=== PATIENT | male | born 1950 | race Caucasian/White ===

== ENCOUNTER 2020-03-08 12:08 | Emergency (ER) | payer MEDICARE, OTHER ==
[2020-03-08] MEDS ORDERED: diazePAM 10MG/2ML SYRINGE (J3360 PER 5MG) ONE (12:25)
[2020-03-08] MEDS ORDERED: KETOROLAC 60MG 2ML VIAL As Ordered ONE (12:25)
[2020-03-08] MEDS ORDERED: KETOROLAC 60MG 2ML VIAL ONE (12:25)
[2020-03-08] MEDS ORDERED: diazePAM 10MG/2ML SYRINGE (J3360 PER 5MG) As Ordered ONE (12:26)
== END 2020-03-08 12:41 | disposition home or self-care (01) ==
LOC: M ED 12:08
DX: M54.30 Sciatica, unspecified side (principal)
CPT/HCPCS: 96372; 99284; J1885; J3360

== ENCOUNTER → 2020-04-08 | Outpatient (REF) | payer MEDICARE ==
[2020-04-08 14:47] LABS: BASO # 0.1 10^3/uL (0.0-0.2); EOS # 0.2 10^3/uL (0.0-0.5); EOS % 3.8 % (0.0-3.0); HEMOGLOBIN 13.5 g/dl (13.5-17.5); LYMPH # 1.7 10^3/uL (1.5-5.0); LYMPH % 34.5 % (24.0-44.0); MEAN CORPUSCULAR HEMOGLOBIN 30.3 pg (27.0-33.0); MEAN CORPUSCULAR HGB CONC 32.9 g/dl (32.0-36.5); MEAN CORPUSCULAR VOLUME 92.1 fl (80.0-96.0); MONO # 0.5 10^3/uL (0.0-0.8); MONO % 9.9 % (0.0-5.0); NEUTROPHILS # 2.5 10^3/uL (1.5-8.5); NEUTROPHILS % 50.4 % (36.0-66.0); PLATELET COUNT, AUTOMATED 292 10^3/uL (150-450); RED BLOOD COUNT 4.45 10^6/uL (4.30-6.10)
[2020-04-08 14:54] LABS: ALBUMIN 3.4 GM/DL (3.2-5.2); ALT/SGPT 26 U/L (12-78); BILIRUBIN,TOTAL 0.7 MG/DL (0.2-1.0); BLOOD UREA NITROGEN 13 MG/DL (7-18); CALCIUM LEVEL 9.2 MG/DL (8.8-10.2); CARBON DIOXIDE LEVEL 28 MEQ/L (21-32); CHLORIDE LEVEL 108 MEQ/L (98-107); CHOLESTEROL LEVEL 262 MG/DL (<200); CHOLESTEROL RISK RATIO 4.678 (<5); CREATININE FOR GFR 1.09 MG/DL (0.70-1.30); FREE T4 0.98 NG/DL (0.76-1.46); GLOMERULAR FILTRATION RATE > 60.0 (>49); GLUCOSE, FASTING 94 MG/DL (70-100); HDL CHOLESTEROL 56 MG/DL (>40); LDL CHOLESTEROL 180 MG/DL (<100); NON-HDL-C 206 MG/DL; POTASSIUM SERUM 4.9 MEQ/L (3.5-5.1); SODIUM LEVEL 141 MEQ/L (136-145); THYROID STIMULATING HORMONE 0.991 uIU/ML (0.358-3.740); TOTAL PROTEIN 7.2 GM/DL (6.4-8.2); TRIGLYCERIDES LEVEL 130 MG/DL (<150)
[2020-04-08 14:56] LABS: TOTAL 25(OH) VITAMIN D 95.7 NG/ML (30.0-100.0)
[2020-04-13 04:07] LABS: PSA TOTAL 2.5 ng/mL (0.0-4.0)
== END ==
LOC: M LABDRWAD 12:57
PROVIDERS: ATTEND Physician Assistant
DX: M54.5 Low back pain (principal); Z13.21 Encounter for screening for nutritional disorder; Z12.5 Encounter for screening for malignant neoplasm of prostate; M48.10 Ankylosing hyperostosis [Forestier], site unspecified; E07.9 Disorder of thyroid, unspecified; E78.00 Pure hypercholesterolemia, unspecified; R97.20 Elevated prostate specific antigen [PSA]

== ENCOUNTER → 2021-04-26 | Outpatient (REF) | payer MEDICARE ==
[2021-04-26 14:05] LABS: BASO # 0.1 10^3/uL (0.0-0.2); BASO % 1.2 % (0.0-1.0); EOS # 0.1 10^3/uL (0.0-0.5); EOS % 2.6 % (0.0-3.0); HEMATOCRIT 42.9 % (42.0-52.0); HEMOGLOBIN 13.7 g/dl (13.5-17.5); LYMPH # 1.7 10^3/uL (1.5-5.0); LYMPH % 33.7 % (24.0-44.0); MEAN CORPUSCULAR HEMOGLOBIN 29.5 pg (27.0-33.0); MEAN CORPUSCULAR HGB CONC 31.9 g/dl (32.0-36.5); MEAN CORPUSCULAR VOLUME 92.5 fl (80.0-96.0); MONO # 0.6 10^3/uL (0.0-0.8); NEUTROPHILS # 2.6 10^3/uL (1.5-8.5); NEUTROPHILS % 51.3 % (36.0-66.0); PLATELET COUNT, AUTOMATED 283 10^3/uL (150-450); RED BLOOD COUNT 4.64 10^6/uL (4.30-6.10); WHITE BLOOD COUNT 5.1 10^3/uL (4.0-10.0)
[2021-04-26 14:36] LABS: ALBUMIN 3.4 GM/DL (3.2-5.2); ALT/SGPT 24 U/L (12-78); BILIRUBIN,TOTAL 0.8 MG/DL (0.2-1.0); BLOOD UREA NITROGEN 17 MG/DL (7-18); CALCIUM LEVEL 9.2 MG/DL (8.8-10.2); CARBON DIOXIDE LEVEL 26 MEQ/L (21-32); CHLORIDE LEVEL 106 MEQ/L (98-107); CHOLESTEROL LEVEL 292 MG/DL (<200); CHOLESTEROL RISK RATIO 4.709 (<5); CREATININE FOR GFR 1.04 MG/DL (0.70-1.30); GLOMERULAR FILTRATION RATE > 60.0 (>49); GLUCOSE, FASTING 96 MG/DL (70-100); HDL CHOLESTEROL 62 MG/DL (>40); LDL CHOLESTEROL 211 MG/DL (<100); NON-HDL-C 230 MG/DL; POTASSIUM SERUM 4.7 MEQ/L (3.5-5.1); SODIUM LEVEL 139 MEQ/L (136-145); TOTAL 25(OH) VITAMIN D 56.5 NG/ML (30.0-100.0); TOTAL PROTEIN 7.2 GM/DL (6.4-8.2); TRIGLYCERIDES LEVEL 96 MG/DL (<150)
[2021-04-27 20:08] LABS: PSA TOTAL 2.7 ng/mL (0.0-4.0)
== END ==
LOC: M LABDRWAD 12:56
PROVIDERS: ATTEND Family Medicine
DX: Z00.00 Encounter for general adult medical examination without abnormal findings (principal); Z79.899 Other long term (current) drug therapy; R97.20 Elevated prostate specific antigen [PSA]

== ENCOUNTER → 2022-07-24 | Outpatient (CLI) | payer MEDICARE ==
[2022-07-24 12:49] LABS: HEMATOCRIT 41.8 % (42.0-52.0); HEMOGLOBIN 13.7 g/dl (13.5-17.5); MEAN CORPUSCULAR HEMOGLOBIN 30.2 pg (27.0-33.0); MEAN CORPUSCULAR HGB CONC 32.8 g/dl (32.0-36.5); MEAN CORPUSCULAR VOLUME 92.1 fl (80.0-96.0); PLATELET COUNT, AUTOMATED 277 10^3/uL (150-450); RED BLOOD COUNT 4.54 10^6/uL (4.30-6.10); WHITE BLOOD COUNT 5.3 10^3/uL (4.0-10.0)
[2022-07-24 13:17] LABS: PROSTATIC SPECIFIC AG MONITOR 2.62 NG/ML (< 4.00)
[2022-07-24 13:22] LABS: ALT/SGPT 19 U/L (7.0-40); AST/SGOT 21 U/L (<34); BLOOD UREA NITROGEN 14 MG/DL (9-23); CALCIUM LEVEL 9.7 MG/DL (8.3-10.6); CARBON DIOXIDE LEVEL 28 MMOL/L (20-31); CHLORIDE LEVEL 106 MMOL/L (98-107); CREATININE FOR GFR 0.95 MG/DL (0.70-1.30); GLOMERULAR FILTRATION RATE > 60.0 (>42); GLUCOSE, FASTING 109 MG/DL (74-106); POTASSIUM SERUM 4.6 MMOL/L (3.5-5.1); SODIUM LEVEL 141 MMOL/L (136-145); THYROID STIMULATING HORMONE 1.335 uIU/ML (0.55-4.78); THYROXINE (T4) 7.8 UG/DL (4.5-10.9)
[2022-07-24 13:23] LABS: ALBUMIN 3.4 G/DL (3.2-5.2); ALKALINE PHOSPHATASE 75 U/L (46-116); BILIRUBIN,TOTAL 0.7 MG/DL (0.3-1.2); CHOLESTEROL LEVEL 311 MG/DL (<200); CHOLESTEROL RISK RATIO 4.98 (<5); HDL CHOLESTEROL 62.4 MG/DL (>40); LDL CHOLESTEROL 229.8 MG/DL (<100); NON-HDL-C 249 MG/DL; TOTAL PROTEIN 7.3 G/DL (5.7-8.2); TRIGLYCERIDES LEVEL 94 MG/DL (<150)
[2022-07-24 13:24] LABS: TESTOSTERONE 426 NG/DL (241-827); TOTAL 25(OH) VITAMIN D 65.3 NG/ML (20.0-100.0)
[2022-07-24 17:34] LABS: HEMOGLOBIN A1c 5.3 % (4.0-6.0)
[2022-07-26 07:11] LABS: TOTAL T3 111.9 NG/DL (60.0-181.0)
== END ==
LOC: M EKG 11:50
PROVIDERS: ATTEND Family Medicine
DX: D64.9 Anemia, unspecified (principal); R53.83 Other fatigue; E03.9 Hypothyroidism, unspecified

== ENCOUNTER → 2022-07-31 | Outpatient (CLI) | payer MEDICARE ==
[2022-07-31 13:05] LABS: CHOLESTEROL RISK RATIO 4.8 (<5); HDL CHOLESTEROL 65.8 MG/DL (>40); LDL CHOLESTEROL 234.2 MG/DL (<100)
== END ==
LOC: M LAB 11:37
PROVIDERS: ATTEND Family Medicine
DX: E78.5 Hyperlipidemia, unspecified (principal)

== ENCOUNTER 2024-06-14 06:41 | Emergency (ER) | payer MEDICARE ==
[~2024-06-14] VITALS: Ht 172.7 cm; Wt 69.1 kg
[2024-06-14] MEDS: CYCLOBENZAPRINE 5MG TABLET PO ONE (07:31)
[2024-06-14] MEDS: KETOROLAC 30 MG/ML 1ML VIAL IM ONE (07:31)
[2024-06-14] MEDS ORDERED: PRED20TA PO (08:30)
[2024-06-14] MEDS ORDERED: CYCL5TAB PO (08:30)
[2024-06-14] MEDS ORDERED: IBUP-1022 PO (08:30)
[2024-06-14 08:36] VITALS: BP 162/90; TEMP 97.4; O2SAT 99
[2024-06-17] MEDS ORDERED: CYCL5TAB PO (11:04)
== END 2024-06-14 08:49 | disposition home or self-care (01) ==
LOC: M ED 06:41
DX: M54.42 Lumbago with sciatica, left side (principal); Z79.52 Long term (current) use of systemic steroids; Z79.1 Long term (current) use of non-steroidal anti-inflammatories (NSAID); Z79.899 Other long term (current) drug therapy
CPT/HCPCS: 80047; 96372; 99283; J1100; J1885

== ENCOUNTER 2024-06-17 08:31 | Inpatient (IN) | payer MEDICARE ==
[~2024-06-17] VITALS: Ht 175.3 cm; Wt 69.1 kg
[~2024-06-17 08:31] MED LIST: CYCL5TAB4 PO; IBUP-1022 PO; PRED20TA PO
[2024-06-17] MEDS ORDERED: CYCL5TAB4 PO (11:04)
[2024-06-17] MEDS ORDERED: IBUP1TAB6 PO (11:04)
[2024-06-17] MEDS ORDERED: PRED20TA PO (11:04)
[2024-06-17] MEDS ORDERED: HOME MED LIST COMPLETE! XX SCH (11:05)
[2024-06-17] MEDS: METHOCARBAMOL 1,000 MG/10 ML VIAL IV ONE (12:35)
[2024-06-17] MEDS: KETOROLAC 30 MG/ML 1ML VIAL IV ONE (12:35)
[2024-06-17] MEDS: ACETAMINOPHEN *IV* 1,000 MG in IV 1 EA IV ONE (13:57)
[2024-06-17] MEDS: MORPHINE 2 MG/ML 1ML VIAL IV ONE (13:57)
[2024-06-17] MEDS: ONDANSETRON 4MG 2ML VIAL IV PRN (13:58)
[2024-06-17] MEDS ORDERED: MAALOX 30 ML SUSP *UDC PO PRN (19:15)
[2024-06-17] MEDS ORDERED: ACETAMINOPHEN 325 MG TAB PO PRN (19:15)
[2024-06-17] MEDS ORDERED: NALOXONE INJ 0.4MG/1ML VIAL IV PRN (19:50)
[2024-06-17] MEDS: methylPREDNISolone 40MG 1ML VIAL IV SCH (20:53)
[2024-06-17] MEDS: LIDOCAINE 5% (LIDODERM) PATCH TD ONE (20:53)
[2024-06-17] MEDS: KETOROLAC 30 MG/ML 1ML VIAL IV SCH (20:54)
[2024-06-17] MEDS: DOCUSATE SODIUM 100MG CAPSULE PO SCH (20:54)
[2024-06-17] MEDS: GABAPENTIN 300 MG CAP PO SCH (20:54)
[2024-06-17 21:21] LABS: BASO % 0.3 % (0.0-1.0); HEMATOCRIT 39.7 % (42.0-52.0); HEMOGLOBIN 13.8 g/dl (13.5-17.5); LYMPH # 1.9 10^3/uL (1.5-5.0); LYMPH % 16.8 % (24.0-44.0); MEAN CORPUSCULAR HEMOGLOBIN 30.7 pg (27.0-33.0); MEAN CORPUSCULAR HGB CONC 34.8 g/dl (32.0-36.5); MEAN CORPUSCULAR VOLUME 88.2 fl (80.0-96.0); MONO # 1.1 10^3/uL (0.0-0.8); MONO % 9.4 % (2.0-8.0); NEUTROPHILS # 8.2 10^3/uL (1.5-8.5); NEUTROPHILS % 73.1 % (36.0-66.0); PLATELET COUNT, AUTOMATED 303 10^3/uL (150-450); WHITE BLOOD COUNT 11.2 10^3/uL (4.0-10.0)
[2024-06-17 21:36] LABS: INR 1.01; PARTIAL THROMBOPLASTIN TIME 27.2 SECONDS (24.8-34.2); PROTHROMBIN TIME 13.6 SECONDS (12.5-14.5)
[2024-06-17 21:40] VITALS: BP 164/94; TEMP 98.2; O2SAT 96
[2024-06-17 21:42] LABS: ALBUMIN 3.1 G/DL (3.2-5.2); ALKALINE PHOSPHATASE 60 U/L (40-129); ALT/SGPT 19 U/L (7.0-40); AST/SGOT 15 U/L (<34); BILIRUBIN,DIRECT 0.2 MG/DL (<0.4); BILIRUBIN,TOTAL 0.8 MG/DL (0.3-1.2); BLOOD UREA NITROGEN 24 MG/DL (9-23); CALCIUM LEVEL 9.9 MG/DL (8.3-10.6); CARBON DIOXIDE LEVEL 24 MMOL/L (20-31); CHLORIDE LEVEL 107 MMOL/L (98-107); CREATININE FOR GFR 1.05 MG/DL (0.70-1.30); GLOMERULAR FILTRATION RATE > 60.0 (>42); GLUCOSE, FASTING 103 MG/DL (74-106); MAGNESIUM LEVEL 2.1 MG/DL (1.8-2.4); POTASSIUM SERUM 4.4 MMOL/L (3.5-5.1); SODIUM LEVEL 142 MMOL/L (136-145); TOTAL PROTEIN 6.7 G/DL (5.7-8.2)
[2024-06-17 22:24] VITALS: O2SAT 96
[2024-06-18] MEDS: ACETAMINOPHEN 325 MG TAB PO SCH (00:27)
[2024-06-18 04:00] VITALS: BP 150/85; TEMP 98.1; O2SAT 97
[2024-06-18] MEDS: oxyCODONE 5MG TAB PO PRN ×2 (05:40→16:08)
[2024-06-18] MEDS: MORPHINE 2 MG/ML 1ML VIAL IV PRN (07:00)
[2024-06-18] MEDS: methocarbamoL 750 MG TAB PO PRN (07:02)
[2024-06-18] MEDS: ENOXAPARIN 40MG/0.4ML SYRINGE (J1650 PER 10MG) SC SCH (09:00)
[2024-06-18] MEDS: FAMOTIDINE 20 MG TAB PO SCH (09:34)
[2024-06-18] MEDS ORDERED: MORPHINE 2 MG/ML 1ML VIAL IV PRN (11:45)
[2024-06-18] MEDS: DICLOFENAC EPOLAMINE 1.3% PATCH TOP SCH (11:54)
[2024-06-18] MEDS: LIDOCAINE 5% (LIDODERM) PATCH TD SCH (11:54)
[2024-06-18 12:00] VITALS: BP 168/94; TEMP 98.1; O2SAT 100
[2024-06-18] MEDS: KETOROLAC 30 MG/ML 1ML VIAL IV SCH (13:00)
[2024-06-18 18:36] VITALS: BP 133/79
[2024-06-18 19:58] VITALS: BP 123/67; TEMP 98.6; O2SAT 100
[2024-06-19 01:41] VITALS: O2SAT 97
[2024-06-19 04:00] VITALS: BP 144/80; TEMP 98.1; O2SAT 96
[2024-06-19 06:16] LABS: BASO % 0.1 % (0.0-1.0); HEMATOCRIT 40.8 % (42.0-52.0); LYMPH # 1.2 10^3/uL (1.5-5.0); LYMPH % 7.2 % (24.0-44.0); MEAN CORPUSCULAR HEMOGLOBIN 30.9 pg (27.0-33.0); MEAN CORPUSCULAR HGB CONC 34.3 g/dl (32.0-36.5); MEAN CORPUSCULAR VOLUME 90.1 fl (80.0-96.0); MONO % 5.8 % (2.0-8.0); NEUTROPHILS # 14.5 10^3/uL (1.5-8.5); NEUTROPHILS % 86.4 % (36.0-66.0); PLATELET COUNT, AUTOMATED 313 10^3/uL (150-450); RED BLOOD COUNT 4.53 10^6/uL (4.30-6.10); WHITE BLOOD COUNT 16.8 10^3/uL (4.0-10.0)
[2024-06-19 06:52] LABS: BLOOD UREA NITROGEN 37 MG/DL (9-23); CALCIUM LEVEL 9.7 MG/DL (8.3-10.6); CARBON DIOXIDE LEVEL 26 MMOL/L (20-31); CHLORIDE LEVEL 104 MMOL/L (98-107); CREATININE FOR GFR 1.21 MG/DL (0.70-1.30); GLOMERULAR FILTRATION RATE > 60.0 (>42); GLUCOSE, FASTING 108 MG/DL (74-106); POTASSIUM SERUM 4.7 MMOL/L (3.5-5.1); SODIUM LEVEL 136 MMOL/L (136-145)
[2024-06-19] MEDS: MORPHINE 4 MG/ML 1ML VIAL IV ONE (09:37)
[2024-06-19 12:00] VITALS: BP 151/83; TEMP 98.1; O2SAT 94
[2024-06-19] MEDS: MOM 30ML SUSPENSION UDC PO PRN (16:32)
[2024-06-19 20:00] VITALS: BP 137/82; TEMP 98.2; O2SAT 93
[2024-06-20 04:37] VITALS: BP 150/87; TEMP 97.9; O2SAT 95
[2024-06-20] MEDS: predniSONE 20 MG TAB PO SCH (09:08)
[2024-06-20 12:00] VITALS: BP 160/80; TEMP 98.1; O2SAT 95
[2024-06-20] MEDS: SENNA 8.6 MG TAB (SENOKOT) PO SCH (12:30)
[2024-06-20] MEDS: tiZANidine 4 MG TAB PO SCH (12:31)
[2024-06-20] MEDS: IBUPROFEN 600MG TAB PO SCH (12:31)
[2024-06-20] MEDS: BISACODYL 10MG SUPP PR ONE (14:55)
[2024-06-20] MEDS ORDERED: KETOROLAC 30 MG/ML 1ML VIAL IV SCH (15:00)
[2024-06-20 20:00] VITALS: BP 160/90; TEMP 98.2; O2SAT 95
[2024-06-20] MEDS: GABAPENTIN 300 MG CAP PO SCH (21:06)
[2024-06-21 04:00] VITALS: BP 176/93; TEMP 97.9; O2SAT 96
[2024-06-21 06:25] LABS: BASO % 0.2 % (0.0-1.0); EOS # 0.1 10^3/uL (0.0-0.5); EOS % 0.6 % (0.0-3.0); HEMATOCRIT 41.1 % (42.0-52.0); HEMOGLOBIN 13.7 g/dl (13.5-17.5); LYMPH # 2.9 10^3/uL (1.5-5.0); LYMPH % 19.2 % (24.0-44.0); MEAN CORPUSCULAR HEMOGLOBIN 30.3 pg (27.0-33.0); MEAN CORPUSCULAR HGB CONC 33.3 g/dl (32.0-36.5); MEAN CORPUSCULAR VOLUME 90.9 fl (80.0-96.0); MONO # 1.3 10^3/uL (0.0-0.8); MONO % 8.9 % (2.0-8.0); NEUTROPHILS # 10.6 10^3/uL (1.5-8.5); PLATELET COUNT, AUTOMATED 293 10^3/uL (150-450); RED BLOOD COUNT 4.52 10^6/uL (4.30-6.10); WHITE BLOOD COUNT 15.1 10^3/uL (4.0-10.0)
[2024-06-21 06:49] LABS: BLOOD UREA NITROGEN 27 MG/DL (9-23); CALCIUM LEVEL 9.5 MG/DL (8.3-10.6); CARBON DIOXIDE LEVEL 29 MMOL/L (20-31); CHLORIDE LEVEL 105 MMOL/L (98-107); CREATININE FOR GFR 0.99 MG/DL (0.70-1.30); GLOMERULAR FILTRATION RATE > 60.0 (>42); GLUCOSE, FASTING 83 MG/DL (74-106); POTASSIUM SERUM 4.1 MMOL/L (3.5-5.1); SODIUM LEVEL 139 MMOL/L (136-145)
[2024-06-21] MEDS: MORPHINE 4 MG/ML 1ML VIAL IV PRN (10:02)
[2024-06-21 12:00] VITALS: BP 152/86; TEMP 98.1; O2SAT 94
[2024-06-21] MEDS: methylPREDNISolone 40MG 1ML VIAL IV SCH (17:10)
[2024-06-21 20:10] VITALS: BP 134/79; TEMP 98.1; O2SAT 94
[2024-06-21] MEDS: GABAPENTIN 400MG CAP PO SCH (21:09)
[2024-06-22 04:24] VITALS: BP 152/84; TEMP 98.1; O2SAT 94
[2024-06-22 12:00] VITALS: BP 146/74; TEMP 98.1; O2SAT 90
[2024-06-22] MEDS: MORPHINE 4 MG/ML 1ML VIAL IV PRN (17:04)
[2024-06-22] MEDS ORDERED: MOM30SS2 PO (19:32)
[2024-06-22] MEDS ORDERED: SENO8.6T5 PO (19:32)
[2024-06-22] MEDS ORDERED: COLA100C5 PO (19:32)
[2024-06-22] MEDS ORDERED: METH40VIAL IV (19:32)
[2024-06-22] MEDS ORDERED: MORP4INJ2 IV (19:32)
[2024-06-22] MEDS ORDERED: DICL1PAT6 TOP (19:32)
[2024-06-22] MEDS ORDERED: LIDO5TD TD (19:32)
[2024-06-22] MEDS ORDERED: ACET32TAB PO (19:32)
[2024-06-22] MEDS ORDERED: OXYC-517 PO (19:32)
[2024-06-22] MEDS ORDERED: TIZA10TA PO (19:32)
[2024-06-22] MEDS ORDERED: GABA-284 PO (19:32)
[2024-06-22] MEDS ORDERED: FAMO20TA PO (19:32)
[2024-06-22] MEDS ORDERED: IBUP-1022 PO (19:32)
[2024-06-22] MEDS ORDERED: LOVE1INJ SC (19:32)
[2024-06-22 20:30] VITALS: BP 136/80; TEMP 98.7; O2SAT 92
== END 2024-06-23 01:34 | disposition short-term general hospital (02) | DRG 552 ==
LOC: M ED 08:31 → M ED INP 08:32 → M MSPAV 21:37 → OBSVTOIN 06-22 17:58
PROVIDERS: ADMIT Student in an Organized Health Care Education/Training Program; ATTEND Internal Medicine Nephrology
DX: M48.061 Spinal stenosis, lumbar region without neurogenic claudication (principal); M54.17 Radiculopathy, lumbosacral region; M16.0 Bilateral primary osteoarthritis of hip; Z79.899 Other long term (current) drug therapy

== ENCOUNTER → 2024-07-01 | Outpatient (REF) | payer MEDICARE ==
[~2024-07-01] MED LIST changes: +ACET32TAB PO; +COLA100C5 PO; +DICL1PAT6 TOP; +FAMO20TA PO; +GABA-284 PO; +IBUP1TAB6 PO; +LIDO5TD TD; +LOVE1INJ SC; +METH40VIAL IV; +MOM30SS2 PO; +MORP4INJ2 IV; +OXYC-517 PO; +SENO8.6T5 PO; +TIZA10TA PO
[2024-07-01 14:13] LABS: BASO # 0.1 10^3/uL (0.0-0.2); BASO % 0.8 % (0.0-1.0); EOS # 0.3 10^3/uL (0.0-0.5); HEMATOCRIT 42.8 % (42.0-52.0); HEMOGLOBIN 13.7 g/dl (13.5-17.5); LYMPH # 2.2 10^3/uL (1.5-5.0); LYMPH % 26.6 % (24.0-44.0); MEAN CORPUSCULAR HEMOGLOBIN 29.8 pg (27.0-33.0); MEAN CORPUSCULAR VOLUME 93.2 fl (80.0-96.0); MONO # 0.8 10^3/uL (0.0-0.8); MONO % 9.6 % (2.0-8.0); NEUTROPHILS # 4.9 10^3/uL (1.5-8.5); NEUTROPHILS % 59.3 % (36.0-66.0); PLATELET COUNT, AUTOMATED 319 10^3/uL (150-450); RED BLOOD COUNT 4.59 10^6/uL (4.30-6.10); WHITE BLOOD COUNT 8.3 10^3/uL (4.0-10.0)
[2024-07-01 14:41] LABS: ALBUMIN 3.1 G/DL (3.2-5.2); ALKALINE PHOSPHATASE 64 U/L (40-129); ALT/SGPT 55 U/L (7.0-40); AST/SGOT 17 U/L (<34); BILIRUBIN,TOTAL 0.6 MG/DL (0.3-1.2); BLOOD UREA NITROGEN 25 MG/DL (9-23); CALCIUM LEVEL 9.9 MG/DL (8.3-10.6); CARBON DIOXIDE LEVEL 27 MMOL/L (20-31); CHLORIDE LEVEL 104 MMOL/L (98-107); CHOLESTEROL LEVEL 336 MG/DL (<200); CHOLESTEROL RISK RATIO 4.93 (<5); CREATININE FOR GFR 1.02 MG/DL (0.70-1.30); FREE T4 1.33 NG/DL (0.89-1.76); GLOMERULAR FILTRATION RATE > 60.0 (>42); GLUCOSE, FASTING 100 MG/DL (74-106); HDL CHOLESTEROL 68.1 MG/DL (>40); LDL CHOLESTEROL 246.1 MG/DL (<100); NON-HDL-C 267.9 MG/DL; POTASSIUM SERUM 5.3 MMOL/L (3.5-5.1); PROSTATIC SPECIFIC AG MONITOR 2.99 NG/ML (< 4.00); SODIUM LEVEL 138 MMOL/L (136-145); THYROID STIMULATING HORMONE 1.708 uIU/ML (0.55-4.78); TOTAL 25(OH) VITAMIN D 95.4 NG/ML (20.0-100.0); TOTAL PROTEIN 7.1 G/DL (5.7-8.2); TRIGLYCERIDES LEVEL 109 MG/DL (<150)
[2024-07-01 15:16] LABS: HEMOGLOBIN A1c 5.5 % (4.0-6.0)
== END ==
LOC: M LABDRWAD 13:22 → M LAB REF 13:22
PROVIDERS: ATTEND Physician Assistant
DX: E78.00 Pure hypercholesterolemia, unspecified (principal); Z13.29 Encounter for screening for other suspected endocrine disorder; R35.1 Nocturia; M48.10 Ankylosing hyperostosis [Forestier], site unspecified; Z79.899 Other long term (current) drug therapy